=== PATIENT | male | born 1940 | race Caucasian/White ===

== ENCOUNTER 2018-08-01 13:00 | Outpatient (RCR) | payer MEDICARE, BC | END 2018-08-01 13:30 | disposition home or self-care (01) | LOC: PT 13:00 | DX: R26.81 Unsteadiness on feet (principal); R53.83 Other fatigue; R29.898 Other symptoms and signs involving the musculoskeletal system; Z95.0 Presence of cardiac pacemaker | CPT/HCPCS: G8978-GP; G8979-GP ==